=== PATIENT | female | born 1990 | race Caucasian/White ===

== ENCOUNTER 2017-04-10 21:55 | Emergency (ER) | payer OTHER ==
[2017-04-10 22:20] LABS: BILIRUBIN,URINE NEGATIVE (NEGATIVE)
--- NOTE | 2017-04-10 22:21 | ED Physician Documentation ---
PD HPI FEMALE - Stated complaint Stated Complaint: FEMALE /4WK OB - Chief complaint Chief Complaint: General - History obtained from History obtained from: Patient - History of Present Illness Timing - onset: Today Timing - details: Abrupt onset Associated symptoms: Vaginal bleeding. No: Fever, Chest/shoulder pain, Abdominal pain, Pelvic pain, Vaginal pain Similar symptoms before: Has not had sx before Recently seen: Not recently seen - Additional information Additional information: Patient is a 26 year old female who is presenting to the emergency department for vaginal bleeding. Patient states that her last period was over two months ago. Patient states that when she went to the bathroom today she noticed some vaginal bleeding. Patient denies any pain at this time. Patient has not had a confirmed test. Review of Systems Constitutional: denies: Fever, Chills Eyes: denies: Decreased vision, Photophobia Ears: reports: Reviewed and negative Nose: reports: Reviewed and negative Throat: reports: Reviewed and negative Cardiac: reports: Reviewed and negative Respiratory: reports: Reviewed and negative GI: denies: Abdominal Pain, Nausea, Vomiting : reports: Vaginal bleeding. denies: Dysuria, Frequency, Hesitancy, Discharge Skin: denies: Rash, Lesions Musculoskeletal: reports: Reviewed and negative Neurologic: reports: Reviewed and negative Immunocompromised: denies: Immunocompromised PD PAST MEDICAL HISTORY - Past Medical History Past Medical History: No - Past Surgical History Past Surgical History: No - Present Medications Home Medications: Ambulatory Orders Medication Instructions Recorded Confirmed Pnv No.122/Iron/Folic Acid 1 each PO DAILY 04/10/17 04/10/17 [ Multi Tablet] - Allergies Allergies/Adverse Reactions: Allergies Allergy/AdvReac Type Severity Reaction Status Date / Time No Known Drug Allergies Allergy Verified 04/10/17 22:01 - Social History Does the pt smoke?: No Smoking Status: Never smoker Does the pt drink ETOH?: No Does the pt have substance abuse?: No - Immunizations Immunizations are current?: Yes PD ED PE NORMAL - Vitals Vital signs reviewed: Yes - General General: Alert and oriented X 3, No acute distress - HEENT HEENT: Atraumatic, PERRL, Pharynx benign - Neck Neck: Supple, no meningeal sign - Cardiac Cardiac: RRR - Respiratory Respiratory: No respiratory distress - Abdomen Abdomen: Soft, Non tender, Non distended - Female Female : Deferred - Derm Derm: Normal color, Warm and dry, No rash - Extremities Extremities: No deformity, Normal ROM s pain - Neuro Neuro: Alert and oriented X 3, No motor deficit, No sensory deficit, Normal speech - Psych Psych: Normal mood, Normal affect Results - Vitals Vitals: Vital Signs - 24 hr 04/10/17 04/11/17 21:58 01:54 Temperature 36.8 C Heart Rate 111 H 81 Respiratory 18 18 Rate Blood Pressure 153/100 H 137/89 H O2 Saturation 99 100 Oxygen O2 Source Room air - Labs Labs: Laboratory Tests 04/10/17 04/10/17 04/10/17 22:00 22:00 22:49 WBC 15.3 H RBC 4.89 Hgb 13.3 Hct 39.9 MCV 81.6 MCH 27.1 MCHC 33.3 RDW 13.8 Plt Count 307 MPV 8.1 Neut # 11.4 H Lymph # 3.0 Edmonson # 0.6 Eos # 0.1 Baso # 0.2 H Absolute Nucleated RBC 0.01 Nucleated RBC % 0.1 Sodium Potassium Chloride Carbon Dioxide Anion Gap BUN Creatinine Estimated GFR (MDRD) Glucose Calcium HCG, Quant Urine Color YELLOW Urine Clarity CLEAR Urine pH 6.0 Ur Specific Drums <=1.005 <=1.005 Urine Protein NEGATIVE Urine Glucose (UA) NEGATIVE Urine Ketones NEGATIVE Urine Occult Blood NEGATIVE Urine Nitrite NEGATIVE Urine Bilirubin NEGATIVE Urine Urobilinogen 0.2 (NORMAL) Ur Leukocyte Esterase NEGATIVE Ur Microscopic Review NOT INDICATED Urine Culture Comments NOT INDICATED Urine HCG, Qual POSITIVE Blood Type 04/10/17 04/10/17 04/10/17 22:49 22:49 22:49 WBC RBC Hgb Hct MCV MCH MCHC RDW Plt Count MPV Neut # Lymph # Edmonson # Eos # Baso # Absolute Nucleated RBC Nucleated RBC % Sodium 137 Potassium 3.3 L Chloride 100 L Carbon Dioxide 25 Anion Gap 12.0 BUN 14 Creatinine 0.8 Estimated GFR (MDRD) 87 L Glucose 87 Calcium 9.9 HCG, Quant 45445.00 Urine Color Urine Clarity Urine pH Ur Specific Drums Urine Protein Urine Glucose (UA) Urine Ketones Urine Occult Blood Urine Nitrite Urine Bilirubin Urine Urobilinogen Ur Leukocyte Esterase Ur Microscopic Review Urine Culture Comments Urine HCG, Qual Blood Type O POSITIVE - Rads (name of study) pelvic ultrasound Radiology: Final report received (earyl intrauterine gestation with ylk sack, no pole), See rad report PD MEDICAL DECISION MAKING - ED course Complexity details: reviewed old records, reviewed results, re-evaluated patient , considered differential, d/w patient, d/w family ED course: Patient was seen and examined at bedside. Patient's urine was collected and did confirm . labs were drawn. When patient's labs came back, imaging was ordered. Patient's ultrasound showed an intrauterine gestation. It was either early vs miscarriage. Patient was made aware of the findings. Patient's Rh was positive. Patient required no further work up and was stable for discharge with outpatient follow up. Departure - Departure Disposition: Home, Self Care Clinical Impression: Threatened Instructions: ED Miscarriage Poss Follow-Up: Abdulaziz Frazier MD [Primary Care Provider] - Within 1 week (within two weeks) Comments: Your diagnostics today showed that the is in the uterus but it is still too early to say if it is a viable vs a miscarriage. It is important that you follow up with your doctor for repeat ultrasound in two weeks. You will likely have some spotting during that time but you should return for heavy bleeding, passing clots or passing tissue. Make sure you stay well hydrated. You may return to the emergency department at any time for new, worsening or uncontrollable symptoms.
[2017-04-10 22:23] LABS: UA CHARGE (STRIP ONLY) YES; UR CULTURE IF IND NOT INDICATED
[2017-04-10 22:24] LABS: HCG UR QUAL POSITIVE
[2017-04-10 22:59] LABS: BASOPHILS # (AUTO) 0.2 10^3/uL (0.0-0.1); BASOPHILS % (AUTO) 1.4 %; EOSINOPHILS # (AUTO) 0.1 10^3/uL (0.0-0.7); EOSINOPHILS % (AUTO) 0.6 %; HCT - HEMATOCRIT 39.9 % (37.0-47.0); HGB - HEMOGLOBIN 13.3 g/dL (12.0-16.0); LYMPHOCYTES % (AUTO) 19.8 %; MEAN CORPUSCULAR HEMOGLOBIN 27.1 pg (27.0-31.0); MEAN CORPUSCULAR HGB CONC 33.3 g/dL (32.0-36.0); MEAN CORPUSCULAR VOLUME 81.6 fL (81.0-99.0); MEAN PLATELET VOLUME 8.1 fL (7.9-10.8); MONOCYTES # (AUTO) 0.6 10^3/uL (0.0-1.0); MONOCYTES % (AUTO) 3.8 %; NEUTROPHILS # (AUTO) 11.4 10^3/uL (1.5-6.6); NEUTROPHILS % (AUTO) 74.4 %; NUCLEATED RED BLOOD CELLS AUTO 0.1 /100WBC; RED BLOOD COUNT 4.89 10^6/uL (4.20-5.40); RED CELL DISTRIBUTION WIDTH 13.8 % (12.0-15.0); UNCORRECTED WHITE BLOOD COUNT 15.3 x10^3/uL; WHITE BLOOD COUNT 15.3 x10^3/uL (4.8-10.8)
[2017-04-10 23:14] LABS: CALCIUM 9.9 mg/dL (8.5-10.3); CREATININE 0.8 mg/dL (0.4-1.0); POTASSIUM 3.3 mmol/L (3.5-5.0)
[2017-04-10] MEDS ORDERED: SODIUM CHLORIDE 0.9% 1,000 ML IV ONE (23:19)
--- NOTE | 2017-04-11 01:20 | Ultrasound Preliminary Report ---
Exam: US OB FIRST TRIMESTER IMPRESSION: Early intrauterine gestation with gestational sac and yolk sac with no pole seen cu rrently. Clinical and ultrasound follow-up suggested in 2 weeks to ensure viability of and for more accurate dating. Small subchorionic bleed. SITE ID: [id number]
--- NOTE | 2017-04-11 01:22 | Ultrasound Report ---
EXAM: FIRST TRIMESTER OBSTETRIC ULTRASOUND (Less than 11 weeks) EXAM DATE: 04/11/2017 01:07 AM. CLINICAL HISTORY: , vaginal bleeding. LMP: 03/04/2017, 5 weeks 3 days. COMPARISONS: None. TECHNIQUE: Transabdominal and transvaginal ultrasound examination with static image documentation. FINDINGS: Gestational Sac: An intrauterine fluid-filled sac contains a yolk sac but no pole seen currentl y. Mean sac diameter of 13 mm corresponds to a 5 week 3 days gestation. Small subchorionic bleed. Placenta: Not visible at this gestational age. Amniotic fluid: Not accurately assessed at this gestational age. Uterus: Unremarkable anteverted appearance. Cervix: Closed. Right Ovary: Volume 14 cc. Normal echotexture and blood flow. Left Ovary: Not seen but no adnexal mass identified. Free Fluid: None. Other: None. IMPRESSION: Early intrauterine gestation with gestational sac and yolk sac with no pole seen cu rrently. Clinical and ultrasound follow-up suggested in 2 weeks to ensure viability of and for more accurate dating. Small subchorionic bleed. Referring Provider Line: [phone] SITE ID: [id number]
[2017-04-11 01:54] VITALS: BP 137/89
== END 2017-04-11 01:54 | disposition home or self-care (01) ==
LOC: ED 21:55
DX: O20.0 Threatened abortion (principal)
CPT/HCPCS: 36415; 76801; 76817; 80048; 81001; 81003; 81025; 84702; 85025; 86900; 86901; 87086; 96360; 99283

== ENCOUNTER 2017-12-01 03:16 | Inpatient (IN) | payer OTHER ==
[2017-12-01] MEDS ORDERED: AMPICILLIN 2 GM in SODIUM CHLORIDE 0.9% MINIBAG 100 ML IV SCH (04:33)
[2017-12-01] MEDS ORDERED: OXYTOCIN/SODIUM CHLORIDE 250 ML IV ONE ×3 (04:33→08:24)
[2017-12-01] MEDS ORDERED: SODIUM CHLORIDE FLUSH 0.9% 10 ML SYRINGE IVP PRN (04:33)
[2017-12-01] MEDS ORDERED: ONDANSETRON 4 MG/2 ML VIAL IVP PRN ×2 (04:33→08:24)
[2017-12-01] MEDS ORDERED: fentaNYL 100 MCG/2 ML VIAL IVP PRN (04:33)
[2017-12-01] MEDS ORDERED: SODIUM CHLORIDE FLUSH 0.9% 10 ML SYRINGE ONE (04:38)
[2017-12-01] MEDS ORDERED: LACTATED RINGERS 1,000 ML IV SCH ×2 (05:00→09:00)
[2017-12-01] MEDS ORDERED: LACTATED RINGERS 1,000 ML IV ONE (05:06)
[2017-12-01] MEDS ORDERED: SODIUM CHLORIDE 0.9% MINIBAG 100 ML IV ONE (05:19)
[2017-12-01 06:37] LABS: BASOPHILS % (AUTO) 0.3 %; EOSINOPHILS # (AUTO) 0.1 10^3/uL (0.0-0.7); EOSINOPHILS % (AUTO) 0.8 %; HGB - HEMOGLOBIN 12.3 g/dL (12.0-16.0); LYMPHOCYTES # (AUTO) 2.2 10^3/uL (1.5-3.5); LYMPHOCYTES % (AUTO) 15.2 %; MEAN CORPUSCULAR HEMOGLOBIN 26.8 pg (27.0-31.0); MEAN CORPUSCULAR HGB CONC 32.9 g/dL (32.0-36.0); MEAN CORPUSCULAR VOLUME 81.5 fL (81.0-99.0); MEAN PLATELET VOLUME 8.8 fL (7.9-10.8); MONOCYTES # (AUTO) 0.7 10^3/uL (0.0-1.0); MONOCYTES % (AUTO) 4.7 %; NEUTROPHILS # (AUTO) 11.5 10^3/uL (1.5-6.6); PLT - PLATELET COUNT 243 10^3/uL (130-450); RED BLOOD COUNT 4.58 10^6/uL (4.20-5.40); RED CELL DISTRIBUTION WIDTH 16.8 % (12.0-15.0); WHITE BLOOD COUNT 14.6 x10^3/uL (4.8-10.8)
[2017-12-01 06:44] LABS: CREATININE 0.6 mg/dL (0.4-1.0); URIC ACID 6.5 mg/dL (2.6-7.2)
--- NOTE | 2017-12-01 07:10 | HISTORY & PHYSICAL EXAMINATION ---
Chief Complaint - Chief Complaint Chief Complaint: LEAKAGE OF FLUID, CONTRACTIONS. History of Present Illness - Admitted From Admitted From:: HOME TO [facility] - History Obtained From Records Reviewed: YES History obtained from: PATIENT Exam Limitations: NO - History of Present Illness HPI Comment/Other: 27 y.o. EDC 12/09/17, EGA 38 4/7 weeks (good historian, no OB records available), present with SROM clear that occurred at 0145 hours. Patient states GBS testing + recently. PNC: Unremarkable, states had normal 1 hr GTT and second trim US, and negative quad screen OB Hx: One prior , 7 lbs. 12 onz PSH: Neg SHx: Neg for smoking/ETOH/Drugs Meds: Valtrex for HSV prophylaxis (never truly diagnosed, no prodromal sx this admission), PNV NKDA Labs: Not available at this time. History - Past Medical History Cardiovascular: reports: None Respiratory: reports: None Neuro: reports: None Endocrine/Autoimmune: reports: None GI: reports: None V[employer]INAR[employer]LTRY: reports: None : reports: None HEENT: reports: None Psych: reports: None Musculoskeletal: reports: None Derm: reports: None MRSA Hx?: No Other Past Medical History: NEG - Past Surgical History Other past surgical history: NEG - Family & Social History Living arrangement: At home - Substance History Use: Uses substance without health or social issues: NONE - POLST POLST Status: Full Code Meds/Allgy - Home Medications Home Medications: Ambulatory Orders Medication Instructions Recorded Confirmed Pnv No.122/Iron/Folic Acid 1 each PO DAILY 04/10/17 04/10/17 [ Multi Tablet] - Allergies Allergies/Adverse Reactions: Allergies Allergy/AdvReac Type Severity Reaction Status Date / Time No Known Drug Allergies Allergy Verified 04/10/17 22:01 Review of Systems - All Other Systems All Other Systems: reports: Reviewed and negative Exam - Vital Signs Reviewed Vital Signs: Yes Vital Signs: Vital Signs x48h Pulse Resp BP Pulse Ox 12/01/17 04:14 98 20 159/78 H 98 - Physical Exam General Appearance: positive: No acute distress, Alert, Mild distress Eyes Bilateral: positive: Normal inspection ENT: positive: ENT inspection nml Respiratory: positive: Chest non-tender Cardiovascular: positive: Regular rate & rhythm Peripheral Pulses: positive: 2+ Abdomen: positive: Non-tender Back: positive: Nml inspection Skin: positive: Color nml, No rash, Warm Extremities: positive: Non-tender Neurologic/Psychiatric: positive: Oriented x3 Conclusion/Plan - Lab Results Fish Bones: 12/01/17 04:50 12/01/17 04:50 Core Measures - Anticipated LOS I expect patient to be DC'd or transferred within 96 hours.: Yes - Issues Hospital Issues and Management Plan: IMPRESSION/PLAN: # 27 yo 38 4/7 weeks in labor # GBS+: Rx with amp until delivery # Patient declines analgesia during labor # Question gestational htn in (no meds). Preeclamptic bloodwork unremarkable. # Routine Orders, amp for GBS+, anticipate - DVT/VTE - Prophylaxis VTE/DVT Device ordered at admit?: No Not Ordered - Low Risk: Low Risk
[2017-12-01 07:37] LABS: CREATININE,URINE 66.6 mg/dL; PROTEIN/CREATININE RATIO,URINE 0.2 (<=0.2)
[2017-12-01] MEDS ORDERED: OXYTOCIN 10 UNIT/ML VIAL ONE (08:08)
[2017-12-01] MEDS ORDERED: LIDOCAINE 1% 50 ML MDV ONE (08:12)
[2017-12-01] MEDS ORDERED: TETANUS/DIPHTHERIA/PERTUSSIS 0.5 ML SYRINGE IM ONE (08:24)
[2017-12-01] MEDS ORDERED: MEASLES,MUMPS & RUBELLA VACC 0.5 ML VIAL SUBQ ONE (08:24)
[2017-12-01] MEDS ORDERED: HYDROCORTISONE/PRAMOXINE 10 GM PR PRN (08:24)
[2017-12-01] MEDS ORDERED: oxyCOD/ACETAMIN 5 MG/325 MG TABLET PO PRN (08:24)
[2017-12-01] MEDS ORDERED: WITCH HAZEL/GLYCERIN 1 EACH MED..PAD TOP PRN (08:24)
[2017-12-01] MEDS ORDERED: OXYTOCIN 10 UNIT/ML VIAL IM ONE (08:29)
--- NOTE | 2017-12-01 08:33 | PROVIDER PROGRESS NOTE ---
Subjective - Prog Note Date Prog Note Date: 12/01/17 Prog Note Time: 08:30 - Subjective Subjective: DELIVERY NOTE: Patient progressed to C/C/+2 at 0731 hours. Delivered at 0753 viable male infant with 8/9. placed on maternal abdomen. Cord clamped x 2 and cut approx. 1 min after delivery. Patient given 10 unit pitocin IM until IV access could be re-established. Once IV re-established, IV pitocin also given per protocol. Placenta delivered spontaneously at 0802 and intact. On exam patient noted to have 2nd degree perineal laceration repaired with 3-0 vicryl in layers using local ANS. EBL 400 mL. Mother and baby doing well. Objective - Vital Signs/Intake & Output Vital Signs: Vital Signs x48h Pulse Resp BP Pulse Ox 12/01/17 04:14 98 20 159/78 H 98 Intake & Output: Intake & Output 11/28/17 11/29/17 11/30/17 12/01/17 23:59 23:59 23:59 23:59 Output Total 300 Balance -300 - Lab Results Fish Bones: 12/01/17 04:50 12/01/17 04:50 Other Labs: Lab Results x24hrs 12/01/17 12/01/17 12/01/17 Range/Units 06:50 04:50 04:50 WBC (4.8-10.8) x10^3/uL RBC (4.20-5.40) 10^6/uL Hgb (12.0-16.0) g/dL Hct (37.0-47.0) % MCV (81.0-99.0) fL MCH (27.0-31.0) pg MCHC (32.0-36.0) g/dL RDW (12.0-15.0) % Plt Count (130-450) 10^3/uL MPV (7.9-10.8) fL Neut # (Auto) (1.5-6.6) 10^3/uL Lymph # (Auto) (1.5-3.5) 10^3/uL Scott # (Auto) (0.0-1.0) 10^3/uL Eos # (Auto) (0.0-0.7) 10^3/uL Baso # (Auto) (0.0-0.1) 10^3/uL Absolute Nucleated RBC x10^3/uL Nucleated RBC % /100WBC Creatinine 0.6 (0.4-1.0) mg/dL Estimated GFR (MDRD) 120 (>89) Uric Acid 6.5 (2.6-7.2) mg/dL AST 19 (10-42) IU/L Lactate Dehydrogenase 122 (91-225) IU/L Urine Creatinine 66.6 mg/dL Ur Total Protein Timed 11 mg/dL Protein/Creatinin Ratio 0.2 (<=0.2) 12/01/17 Range/Units 04:50 WBC 14.6 H (4.8-10.8) x10^3/uL RBC 4.58 (4.20-5.40) 10^6/uL Hgb 12.3 (12.0-16.0) g/dL Hct 37.3 (37.0-47.0) % MCV 81.5 (81.0-99.0) fL MCH 26.8 L (27.0-31.0) pg MCHC 32.9 (32.0-36.0) g/dL RDW 16.8 H (12.0-15.0) % Plt Count 243 (130-450) 10^3/uL MPV 8.8 (7.9-10.8) fL Neut # (Auto) 11.5 H (1.5-6.6) 10^3/uL Lymph # (Auto) 2.2 (1.5-3.5) 10^3/uL Scott # (Auto) 0.7 (0.0-1.0) 10^3/uL Eos # (Auto) 0.1 (0.0-0.7) 10^3/uL Baso # (Auto) 0.0 (0.0-0.1) 10^3/uL Absolute Nucleated RBC 0.00 x10^3/uL Nucleated RBC % 0.0 /100WBC Creatinine (0.4-1.0) mg/dL Estimated GFR (MDRD) (>89) Uric Acid (2.6-7.2) mg/dL AST (10-42) IU/L Lactate Dehydrogenase (91-225) IU/L Urine Creatinine mg/dL Ur Total Protein Timed mg/dL Protein/Creatinin Ratio (<=0.2)
[2017-12-01] MEDS: ACETAMINOPHEN 500 MG TABLET PO PRN ×2 (08:42→16:51)
[2017-12-01] MEDS ORDERED: AMPICILLIN 1 GM in SODIUM CHLORIDE 0.9% MINIBAG 100 ML IV SCH (09:00)
[2017-12-01] MEDS ORDERED: SODIUM CHLORIDE FLUSH 0.9% 10 ML SYRINGE IVP SCH (09:00)
[2017-12-01] MEDS: DOCUSATE SODIUM 100 MG CAPSULE PO PRN ×2 (11:03→21:23)
[2017-12-01] MEDS: IBUPROFEN 800 MG TABLET PO PRN ×2 (11:03→23:09)
[2017-12-01] MEDS: SIMETHICONE CHEW 80 MG TABLET PO SCH ×2 (16:54→21:23)
[2017-12-02] MEDS: ACETAMINOPHEN 500 MG TABLET PO PRN ×3 (01:25→20:17)
[2017-12-02] MEDS: DOCUSATE SODIUM 100 MG CAPSULE PO PRN (09:32)
[2017-12-02] MEDS: SIMETHICONE CHEW 80 MG TABLET PO SCH ×2 (09:34→16:36)
[2017-12-02] MEDS: IBUPROFEN 800 MG TABLET PO PRN (16:35)
[2017-12-03] MEDS: DOCUSATE SODIUM 100 MG CAPSULE PO PRN ×2 (01:56→09:36)
[2017-12-03] MEDS: IBUPROFEN 800 MG TABLET PO PRN ×2 (04:28→09:35)
[2017-12-03] MEDS: ACETAMINOPHEN 500 MG TABLET PO PRN ×2 (04:29→16:07)
[2017-12-03] MEDS ORDERED: LABETALOL 100 MG TABLET PO SCH ×2 (04:52→09:00)
[2017-12-03 05:54] LABS: MEAN CORPUSCULAR HEMOGLOBIN 26.9 pg (27.0-31.0); MONOCYTES % (AUTO) 5.4 %; NEUTROPHILS % (AUTO) 70.5 %
[2017-12-03 06:25] LABS: BASOPHILS % (AUTO) 0.6 %; EOSINOPHILS % (AUTO) 1.6 %; HGB - HEMOGLOBIN 10.2 g/dL (12.0-16.0); LYMPHOCYTES % (AUTO) 21.9 %; MEAN CORPUSCULAR HGB CONC 32.5 g/dL (32.0-36.0); MEAN CORPUSCULAR VOLUME 82.8 fL (81.0-99.0); MEAN PLATELET VOLUME 8.6 fL (7.9-10.8); PLT - PLATELET COUNT 217 10^3/uL (130-450); RED BLOOD COUNT 3.78 10^6/uL (4.20-5.40); RED CELL DISTRIBUTION WIDTH 16.8 % (12.0-15.0); WHITE BLOOD COUNT 11.5 x10^3/uL (4.8-10.8)
[2017-12-03 06:32] LABS: ABNORMAL LYMPHS % (MANUAL) 0 %
[2017-12-03 06:51] LABS: BAND NEUTROPHILS % (MANUAL) 4 %; EOSINOPHILS # (MANUAL) 0.1 10^3/uL (0-0.7); LYMPHOCYTES # (MANUAL) 1.7 10^3/uL (1.5-3.5); LYMPHOCYTES % (MANUAL) 15 %; MONOCYTES # (MANUAL) 0.9 10^3/uL (0.0-1.0); NEUTROPHILS # (MANUAL) 8.7 10^3/uL (1.5-6.6); NEUTROPHILS % (MANUAL) 72 %; RBC MORPHOLOGY (MULTIPLE) NORMAL APPEARANCE (NORMAL)
[2017-12-03 06:52] LABS: DIFFERENTIAL COMMENT MANUAL DIFFERENTIAL; PLATELET ESTIMATE, MANUAL INCREASED (>450,000) (NORMAL)
--- NOTE | 2017-12-03 09:59 | PROVIDER PROGRESS NOTE ---
Subjective - Prog Note Date Prog Note Date: 12/03/17 Prog Note Time: 09:57 - Subjective Pt reports feeling: Improved Subjective: Patient sitting in bed, holding baby. Pain controlled with motrin and tylenol. Scant lochia. Ambulating and tolerating a regular diet. Urinating without difficulty. Desires to go home. [place] S/s of preeclampsia. Objective - Vital Signs/Intake & Output Reviewed Vital Signs: Yes Vital Signs: Vital Signs x48h Temp Pulse Resp BP Pulse Ox 12/03/17 09:16 98.6 F 87 18 136/76 H 100 12/03/17 04:45 98.1 F 85 16 146/83 H 100 Intake & Output: Intake & Output 11/30/17 12/01/17 12/02/17 12/03/17 23:59 23:59 23:59 23:59 Intake Total 400 Output Total 1425 400 Balance -1425 -400 400 - Objective General Appearance: positive: No acute distress Abdomen: positive: Non-tender (Firm fundus, benign. Nontender.) Extremities: positive: Non-tender, Pedal edema (+1 bilaterally) Neurologic/Psychiatric: positive: Oriented x3, Mood/affect nml - Lab Results Fish Bones: 12/03/17 05:31 12/01/17 04:50 Other Labs: Lab Results x24hrs 12/03/17 Range/Units 05:31 WBC 11.5 H (4.8-10.8) x10^3/uL RBC 3.78 L (4.20-5.40) 10^6/uL Hgb 10.2 L (12.0-16.0) g/dL Hct 31.3 L (37.0-47.0) % MCV 82.8 (81.0-99.0) fL MCH 26.9 L (27.0-31.0) pg MCHC 32.5 (32.0-36.0) g/dL RDW 16.8 H (12.0-15.0) % Plt Count 217 (130-450) 10^3/uL MPV 8.6 (7.9-10.8) fL Neut # (Auto) Not Reportable Lymph # (Auto) Not Reportable Yell # (Auto) Not Reportable Eos # (Auto) Not Reportable Baso # (Auto) Not Reportable Absolute Nucleated RBC Not Reportable Total Counted 100 Band Neuts % (Manual) 4 (0 - 10) % Abnorm Lymph % (Manual) 0 % Nucleated RBC % Not Reportable Neutrophils # (Manual) 8.7 H (1.5-6.6) 10^3/uL Lymphocytes # (Manual) 1.7 (1.5-3.5) 10^3/uL Monocytes # (Manual) 0.9 (0.0-1.0) 10^3/uL Eosinophils # (Manual) 0.1 (0-0.7) 10^3/uL Basophils # (Manual) 0.0 (0-0.1) 10^3/uL Differential Comment MANUAL DIFFERENTIAL Platelet Estimate INCREASED (>450,000) (NORMAL) RBC Morph Micro Appear NORMAL APPEARANCE (NORMAL) Assessment/Plan - Problem List (1) Vaginal delivery Impression: 24 yo S/p 12/01/2017, PPD #2 Normal recovery Chronic HTN, improved on labetalol 100 mg BID Routine care Discharge to home today Follow up with next week for BP check Reviewed S/s pre-eclampsia for precautions Rx vicodin, motrin, tylenol, colace, labetalol Briefly discussed with Hanna best option for control is Paragard. Hanna states she had systemic effects from Mirena IUD. Unsure if she desires more children in the future. [id number]
[2017-12-03 15:10] VITALS: BP 145/95
--- NOTE | 2017-12-03 18:12 | Labor Flowsheet ---
Labor Flowsheet Datetime Report Generated by CPN: 12/03/2017 18:12 Datetime: 12/02/2017 20:03 VITAL SIGNS NBP Sys/Kelsey/Mean (mmHg): 155 : 78 : 97 Pulse: 96 COMMUNICATION LaborFlag: Labor Datetime: 12/01/2017 10:04 SpO2 (%): 100 Datetime: 12/01/2017 08:30 Temperature (C): 37.0 Datetime: 12/01/2017 08:15 Stage of : Labor Datetime: 12/01/2017 07:53 Comments: Delivery Datetime: 12/01/2017 07:52 UTERINE ACTIVITY Monitor Mode: External Frequency (min): 3-4 Quality: Strong Duration (sec): 50-70 Pattern: Normal: <= 5 Contractions in 10 Minutes Resting Tone (Palpate): Relaxed ASSESSMENT A Monitor Mode: External US Monitor Interventions for FHR: Ultrasound Adjusted FHR Baseline Rate : 135 Variability: Moderate 6-25 bpm Accelerations: 15X15 Decelerations: Early Category: Category I PATIENT CARE Oxygen Method: Room Air Datetime: 12/01/2017 07:50 Monitor Interventions for UA: [place] Adjusted Datetime: 12/01/2017 05:00 FHR Baseline Changes: No Baseline Change Datetime: 12/01/2017 03:57 VAGINAL EXAM Dilatation (cm): 4.0 Effacement (%): 90 Station: -2 Exam by: jad hurtado RN Membrane Status: Ruptured Membranes Ruptured Date/Time: 12/01/2017 01:45 Membranes Rupture Method: Spontaneous Amniotic Fluid Color: Clear Amniotic Fluid Amount: Moderate Amniotic Fluid Odor: Normal Vaginal Bleeding: None Nitrazine: Positive Datetime: 12/01/2017 03:52 Respirations: 20 Temperature Route: Oral
--- NOTE | 2017-12-05 08:00 | DISCHARGE SUMMARY ---
Physician: Gabbie Aden DO DATE OF ADMISSION: 12/01/2017 DATE OF DISCHARGE: 12/03/2017 DIAGNOSES ON ADMISSION 1. A 27-year-old G2, P2-0-0-2 with a 38-6/7-week intrauterine . 2. Active labor. 3. Chronic hypertension. DIAGNOSES ON DISCHARGE 1. A 27-year-old G2, P2-0-0-2, status post spontaneous vaginal delivery on . 2. Improved chronic hypertension, on labetalol. 3. Normal recovery. BRIEF HISTORY: Patient is a patient of the [facility] who presented on 12/01/2017 with complaints of contractions. Patient was found to be in active labor and, was admitted to the hospital. She had a spontaneous vaginal delivery of a viable male infant. Apgars are 8 and 9 at one and five minutes, respectively. She sustained a second-degree midline laceration that was repaired with 3-0 Vicryl. EBL was 400 mL. HOSPITAL COURSE: course has been remarkable for continued elevated blood pressures. On admission, her blood pressure is 146/88. After delivery, her blood pressures continued to be in the 140s and into the 150s over 70s-90s diastole. Patient was therefore started on labetalol 100 mg 1 tab p.o. b.i.d. Blood pressures have improved. Current blood pressure 136/76. Patient otherwise denies any symptoms of preeclampsia. Her preeclampsia labs have been within normal limits. Patient otherwise is doing well and is ambulating, tolerating a regular diet. She is urinating without difficulty. She denies any nausea, vomiting, fevers, chills, or diarrhea. The baby is latching successfully at this point in time. Patient's pain is controlled, mainly with Tylenol and Motrin. DISCHARGE MEDICATIONS Patient will be discharged to home today with prescriptions for: 1. Motrin. 2. Tylenol. 3. Colace. 4. Vicodin. 5. Labetalol 100 mg 1 tab p.o. b.i.d. #60 tablets. FOLLOWUP: I would like patient to follow up with the [facility] next week for blood pressure check. She also has been given preeclampsia precautions. I briefly discussed with her with respect to what she would desire for contraception. Patient is unsure about contraception, and if she desires future children. Her will be sent off to schooling in the near future. Patient states that on the Mirena IUD, she had a lot of emotional changes. Given she had a systemic effect on a local medication, patient probably would do best on a non-hormonal form of contraception, which essentially would be the ParaGard IUD. However, did caution patient that, with the ParaGard IUD, there is increased risk of dysmenorrhea as well as menorrhagia. Patient will consider what she would like to do with respect to contraception. cc: [facility] - Dr. Dai TD: 12/03/2017 10:29 MTDD
== END 2017-12-03 16:50 | disposition home or self-care (01) | DRG 774 ==
LOC: WFO 03:16 → FBP 03:18 → WFO 03:34 → FBP 03:35 → UNDOADMIN 03:35 → FBP 04:20
PROVIDERS: ADMIT Obstetrics & Gynecology; ATTEND Obstetrics & Gynecology
PROC: 10E0XZZ Delivery of Products of Conception, External Approach (ICD-10-PCS; principal; 2017-12-01)
DX: O10.92 Unspecified pre-existing hypertension complicating childbirth (principal); O98.52 Other viral diseases complicating childbirth; O99.820 Streptococcus B carrier state complicating pregnancy; O70.1 Second degree perineal laceration during delivery; B00.9 Herpesviral infection, unspecified; Z3A.38 38 weeks gestation of pregnancy; Z37.0 Single live birth
CPT/HCPCS: 36415; 82565; 82570; 83615; 84156; 84450; 84550; 85025; 99213

== ENCOUNTER 2018-02-28 19:38 | Emergency (ER) | payer OTHER ==
--- NOTE | 2018-02-28 20:20 | ED Physician Documentation ---
PD HPI FEMALE - Stated complaint Stated Complaint: FEMALE /NAUSE - Chief complaint Chief Complaint: Abd Pain - History obtained from History obtained from: Patient - History of Present Illness Timing - onset: How many days ago (2) Timing - details: Gradual onset, Still present Associated symptoms: Pelvic pain. No: Fever, Chest/shoulder pain Similar symptoms before: Has not had sx before Recently seen: Not recently seen - Additional information Additional information: Patient is a 27 year old female post about three months ago who is presenting to the emergency department for lower abdominal pain. patient states that it has been going on for the last two days. Patient had one episode of vomiting. Patient has not been sexually active since her delivery. Patient denies vaginal bleeding or vaginal discharge. Review of Systems Ten Systems: 10 systems reviewed and negative Constitutional: denies: Fever, Chills GI: reports: Abdominal Pain : denies: Dysuria, Frequency, Hematuria, Discharge, Vaginal bleeding PD PAST MEDICAL HISTORY - Past Medical History Cardiovascular: None Respiratory: None Neuro: None Endocrine/Autoimmune: None GI: None MOUNTAIN [employer] GUIDE: None : None HEENT: None Psych: None Musculoskeletal: None Derm: None - Past Surgical History Past Surgical History: No - Present Medications Home Medications: Ambulatory Orders Medication Instructions Recorded Confirmed Pnv No.122/Iron/Folic Acid 1 each PO DAILY 04/10/17 04/10/17 [ Multi Tablet] - Allergies Allergies/Adverse Reactions: Allergies Allergy/AdvReac Type Severity Reaction Status Date / Time No Known Drug Allergies Allergy Verified 02/28/18 19:47 - Social History Does the pt smoke?: No Smoking Status: Never smoker Does the pt drink ETOH?: No Does the pt have substance abuse?: No - Immunizations Immunizations are current?: Yes - POLST POLST Status: Full Code PD ED PE NORMAL - Vitals Vital signs reviewed: Yes - General General: Alert and oriented X 3, No acute distress - HEENT HEENT: Atraumatic - Neck Neck: Supple, no meningeal sign - Cardiac Cardiac: RRR - Respiratory Respiratory: No respiratory distress - Abdomen Abdomen: Soft, Non distended - Derm Derm: Normal color, Warm and dry, No rash - Extremities Extremities: No deformity - Neuro Neuro: Alert and oriented X 3 Eye Opening: Spontaneous PD ED PE EXPANDED - Abdomen Abdomen: Tender to palpation, RLQ, Suprapubic, LLQ Results - Vitals Vitals: Vital Signs - 24 hr 02/28/18 02/28/18 19:40 22:43 Temperature 36.8 C 36.6 C Heart Rate 100 104 H Respiratory 17 16 Rate Blood Pressure 147/92 H 164/102 H O2 Saturation 99 98 Oxygen O2 Source Room air - Labs Labs: Laboratory Tests 02/28/18 02/28/18 02/28/18 20:40 21:15 21:15 WBC 12.5 H RBC 4.90 Hgb 12.8 Hct 39.1 MCV 79.7 L MCH 26.1 L MCHC 32.7 RDW 15.4 H Plt Count 321 MPV 7.7 L Neut # (Auto) 10.3 H Lymph # (Auto) 1.6 [place] # (Auto) 0.4 Eos # (Auto) 0.1 Baso # (Auto) 0.1 Absolute Nucleated RBC 0.00 Nucleated RBC % 0.0 Sodium 140 Potassium 4.1 Chloride 104 Carbon Dioxide 28 Anion Gap 8.0 BUN 15 Creatinine 0.8 Estimated GFR (MDRD) 86 L Glucose 113 H Calcium 9.2 Total Bilirubin 0.5 AST 20 ALT 30 Alkaline Phosphatase 70 Total Protein 8.1 Albumin 4.2 Globulin 3.9 Albumin/Globulin Ratio 1.1 Lipase 19 L Urine Color YELLOW Urine Clarity CLEAR Urine pH 6.0 Ur Specific [place] >=1.030 H Urine Protein NEGATIVE Urine Glucose (UA) NEGATIVE Urine Ketones NEGATIVE Urine Occult Blood NEGATIVE Urine Nitrite NEGATIVE Urine Bilirubin NEGATIVE Urine Urobilinogen 0.2 (NORMAL) Ur Leukocyte Esterase NEGATIVE Ur Microscopic Review NOT INDICATED Urine Culture Comments NOT INDICATED - Rads (name of study) pelvic ultrasound Radiology: Final report received (right sided ovarian cyst, no torsion) PD MEDICAL DECISION MAKING - ED course Complexity details: reviewed old records, reviewed results, re-evaluated patient, considered differential, d/w patient ED course: Patient was seen and examined at bedside. patient was well appearing. urine was collected but showed no signs of acute infection. labs were drawn and ultrasound was ordered. When patient returned from imaging the results were reviewed. There were no significant abnormalities. patient stated that she had young kids at home and her was deployed but grandmother was in town to watch the kids so she just wanted to get everything checked out. patient was made aware of the findings and was stable for discharge with outpatient follow up. - Sepsis Event Vital Signs: Vital Signs - 24 hr 02/28/18 02/28/18 19:40 22:43 Temperature 36.8 C 36.6 C Heart Rate 100 104 H Respiratory 17 16 Rate Blood Pressure 147/92 H 164/102 H O2 Saturation 99 98 Oxygen O2 Source Room air Departure - Departure Disposition: 01 Home, Self Care Clinical Impression: Pelvic pain Condition: Good Instructions: ED Pelvic Pain [facility] Follow-Up: primary,care provider [Other] - As Needed Comments: Your diagnostics today were within normal limits. aside from a right sided ovarian cyst. You will need to follow up with your doctor in 6-12 weeks for repeat ultrasound. You can take motrin or tylenol as needed for pain. You should follow up with your tobacco stripper if your symptoms persist. You may return to the emergency department at any time for new, worsening or uncontrollable symptoms. Discharge Date/Time: 02/28/18 22:49
[2018-02-28 20:52] LABS: BILIRUBIN,URINE NEGATIVE (NEGATIVE); GLUCOSE, URINE (UA) NEGATIVE (NEGATIVE); KETONES,URINE (UA) NEGATIVE (NEGATIVE); LEUKOCYTE ESTERASE, URINE NEGATIVE (NEGATIVE); NITRITE,URINE NEGATIVE (NEGATIVE); OCCULT BLOOD,URINE NEGATIVE (NEGATIVE); PROTEIN,URINE NEGATIVE (NEGATIVE); UROBILINOGEN,URINE 0.2 (NORMAL) E.U./dL (NORMAL)
[2018-02-28 20:56] LABS: CLARITY,URINE CLEAR (CLEAR)
[2018-02-28 21:24] LABS: BASOPHILS # (AUTO) 0.1 10^3/uL (0.0-0.1); BASOPHILS % (AUTO) 0.8 %; EOSINOPHILS # (AUTO) 0.1 10^3/uL (0.0-0.7); EOSINOPHILS % (AUTO) 0.8 %; HGB - HEMOGLOBIN 12.8 g/dL (12.0-16.0); LYMPHOCYTES # (AUTO) 1.6 10^3/uL (1.5-3.5); MEAN CORPUSCULAR HEMOGLOBIN 26.1 pg (27.0-31.0); MEAN CORPUSCULAR HGB CONC 32.7 g/dL (32.0-36.0); MEAN CORPUSCULAR VOLUME 79.7 fL (81.0-99.0); MEAN PLATELET VOLUME 7.7 fL (7.9-10.8); MONOCYTES # (AUTO) 0.4 10^3/uL (0.0-1.0); MONOCYTES % (AUTO) 3.3 %; NEUTROPHILS # (AUTO) 10.3 10^3/uL (1.5-6.6); NEUTROPHILS % (AUTO) 82.1 %; PLT - PLATELET COUNT 321 10^3/uL (130-450); RED CELL DISTRIBUTION WIDTH 15.4 % (12.0-15.0); WHITE BLOOD COUNT 12.5 x10^3/uL (4.8-10.8)
[2018-02-28 21:37] LABS: ALBUMIN 4.2 g/dL (3.2-5.5); ALBUMIN/GLOBULIN RATIO 1.1 (1.0-2.2); BILIRUBIN,TOTAL 0.5 mg/dL (0.2-1.0); CALCIUM 9.2 mg/dL (8.5-10.3); CREATININE 0.8 mg/dL (0.4-1.0); TOTAL PROTEIN 8.1 g/dL (6.7-8.2)
--- NOTE | 2018-02-28 22:27 | Ultrasound Report ---
Reason: pelvic pain Procedure Date: 02/28/2018 Accession Number: [id number] / [id number] Procedure: US - Pelvic w/Transvag+Doppler Comp CPT Code: FULL RESULT: EXAM: PELVIC ULTRASOUND. EXAM DATE: 02/28/2018 09:46 PM. CLINICAL HISTORY: Pelvic pain. COMPARISON: None. TECHNIQUE: Realtime transabdominal pelvic scan performed to identify the uterus and adnexa and as an overview of other pelvic structures, followed by transvaginal scan to provide greater detail of the uterus and adnexa, with static image documentation. FINDINGS: LMP: 02/13/2018. Uterus: Uterus is normal in position and normal in configuration. Uterus measures 9.0 x 4.5 x 6.7 cm. No evident uterine masses. Endometrium: Endometrium measures 9.0 mm. No suspicious thickening or vascularity. Cervix: No suspicious lesion. Right Ovary: Normal in appearance measuring 4.7 x 2.9 x 3.6 cm. Normal blood flow. There is a heterogeneous hypoechoic structure measuring 2.0 x 2.0 x 2.2 cm. No internal vascularity. Left Ovary: Normal in appearance measuring 3.4 x 1.8 x 2.2 cm. Normal blood flow. Fluid: No signficant free fluid. Other: No other significant findings. IMPRESSION: 1. Heterogeneous hypoechoic 2.0 x 2.0 x 2.2 cm cyst within the right ovary. Differential diagnosis includes a hemorrhagic cyst, endometrioma, or a dermoid. Follow-up pelvic ultrasound recommended in 6-12 weeks. Management above is based on recommendations outlined by the Society for Radiologists in Ultrasound. Beny Hernández. ET al. Management of Asymptomatic Ovarian Cysts imaged at US: Society of Radiologists in Ultrasound Concensus Conference Statement. Radiology 256, [id number] (2010). 2. No evidence of ovarian torsion. [facility]
[2018-02-28 22:47] VITALS: BP 164/102
== END 2018-02-28 22:49 | disposition home or self-care (01) ==
LOC: ED 19:38
DX: R10.2 Pelvic and perineal pain (principal); N83.201 Unspecified ovarian cyst, right side
CPT/HCPCS: 36415; 76830; 76856; 80053; 81001; 81003; 83690; 85025; 87086; 93975; 99283